=== PATIENT | female | born 1960 | race Caucasian/White ===

== ENCOUNTER 2016-11-18 11:18 | Emergency (ER) | payer OTHER ==
[~2016-11-18] VITALS: Ht 165.1 cm; Wt 100.0 kg
[~2016-11-18 11:18] MED LIST: ASPIRIN LOW DOS81 M1 PO; COREG3.125 MG PO; DEPO-MEDROL40 MG/ML IM; DIOVAN HCT160 MG/25 PO; DIOVAN160 MG PO; KEFLEX500 M1 PO; PRILOSEC20 MG/CAP PO
[2016-11-18] MEDS ORDERED: XOPENEX HF45 MCG/ACT (11:26)
[2016-11-18] MEDS ORDERED: TESSALON PERLE100 MG (11:27)
[2016-11-18] MEDS ORDERED: ALBUTEROL2 MG/5 ML PO (11:27)
[2016-11-18] MEDS ORDERED: PRILOSEC20 MG PO (11:28)
[2016-11-18] MEDS ORDERED: HYDRO (11:28)
[2016-11-18] MEDS ORDERED: ZYRTEC10 MG PO (11:28)
[2016-11-18] MEDS ORDERED: VALSARTAN (11:28)
[2016-11-18] MEDS ORDERED: MEDDOSEPAK PO (13:21)
[2016-11-18 13:26] VITALS: BP 120/62
== END 2016-11-18 13:34 | disposition home or self-care (01) | DRG 203 ==
LOC: ED 11:18
DX: J45.901 Unspecified asthma with (acute) exacerbation (principal); R06.02 Shortness of breath; R05 Cough; Z77.22 Contact with and (suspected) exposure to environmental tobacco smoke (acute) (chronic)

== ENCOUNTER → 2018-06-09 | Outpatient (REF) ==
[~2018-06-09] MED LIST changes: +ALBUTEROL2 MG/5 ML PO; +HYDRO; +MEDDOSEPAK PO; +PRILOSEC20 MG PO; +TESSALON PERLE100 MG; +VALSARTAN; +XOPENEX HF45 MCG/ACT; +ZYRTEC10 MG PO
[2018-06-09 09:29] LABS: CHOLESTEROL HDL RATIO 7.7 (<4.4 (CALC))
== END | disposition home or self-care (01) | DRG 951 ==
LOC: LAB 07:32
PROVIDERS: ATTEND Family Medicine
DX: Z02.6 Encounter for examination for insurance purposes (principal)